=== PATIENT | female | born 1975 | race Caucasian/White ===

== ENCOUNTER 2024-12-26 16:55 | Emergency (ER) | payer BC, SELFPAY ==
--- OUTSIDE RECORDS SUMMARY | 2024-08-09 04:30 | XMS_ITS ---
Author Organization Donn Kebede MD Address [address] [address] Care Team Providers Care Head Operator Sulfide Name Role Phone Chris Miller Primary Care Provider U Donn Lackey [phone] REASON FOR VISIT Dysphagia and Esophagitis Encounters Encounter Location Date Provider Diagnosis Donn Kebede MD [address] [address] 08/09/2024 Donn Kebede Plan Of Treatment No Information Progress Notes * ALYCEJosiane TRUJILLOeDOB: [birth year] (49 yo F)Acc No.[id number]:08/09/2024 Patient: Emily JIANG Provider: Eleazar Kebede MD :1975 A ge:48 Y S ex:Female Date:08/09/2024 Address[facility] [place] [id number] Pcp:Chris Ahn Subjective: * Chief Complaints: * 1 . Dysphagia and Esophagitis. * HPI: H istory: Patient presents today for The patient denies heartburn, dysphagia, esophageal reflux, nausea, vomiting, abdominal pain, melena, hematochezia, changes in bowel habits or weight changes. * ROS: : Constitutional N o weight changes, fever or chills. N eurological N o history of cerebrovascular accident, transient ischemic attacks or seizure. C ardiovascular N o hypertension, No heart attack, No shortness of breath. P ulmonary N o hemoptysis, bronchitis or asthma, No pneumonia. G astrointestinal N o hematochezia, melena or hematemesis. G enitourinary N o pain, urgency or hematuria. E ndocrine N o diabetes or thyroid disease. M usculosketal N o arthritis or joint pain. H ematological N o bleeding disorders or easy bruising. I ntegumentary N o skin diseases, itching or changes in nail color. P sychiatric N o anxiety, halucinations or psychiatric conditions. * Medical History: Objective: * Vitals: * Examination: G eneral Examination: General appearance: r eveals a well-developed, well-nourished, and in no acute distress. S kin: w arm, moist. H EENT: w ithin normal limits.?Neck: s upple without jugular venous distenion. L ungs: c lear to auscultation. H eart: n o murmurs. A bdomen: s oft with no tenderness. Bowel sounds were active. E xtremities: w ithout cyanosis, clubbing or edema. * Physical Examination: : Appearance R eveals a well-developed, well-nourished pleasant patient, in no acute distress. H EENT w ithin normal limits. N negar s upple without jugular venous distention. H eart r egular without murmurs. L ungs c lear to ausculation. A bdomen S oft, with no tenderness, Bowel sounds were active. E xtremities w ithout cyanosis, clubbing, edema. H EENT: Head: W ithin normal limits. N negar:: Palpation: s upple, without jugular distentions. H eart:: Rhythm: r egular. L ungs: Auscultation: c lear. A bdomen: Palpation S oft, with no tenderness. Bowel sounds were active.. E xtremities: Inspection: W ithout cyanosis, clubbing, or edema.. Assessment: Plan: * Treatment: * Images: * Electronic signature of Perry Kebede MD on 12/26/2024 at 04:05 PM PDT Sign off status: Pending * Provider: Eleazar Kebede MD Date: 08/09/2024 Generated for Krystina rey/Stacy/eTfederico on: 12/26/2024 04:05 PM PDT History and Physical Notes * HPI (History of Present Illness) Category Sub-Category Detail Notes Category Not es History Patient presents today for The patient denies heartburn, dysphagia, esophageal reflux, nausea, vomiting, abdominal pain, melena, hematochezia, changes in bowel habits or weight changes. Physical Examination Category Sub-Category Detail Notes Section Note s HEENT Ear drums: Head: Within normal limits Sclera: Pupils: EOM: Oral cavity: Neck: Palpation: supple, without jugular dist entions Thyroid: Cervical lymph nodes: Carotid bruit: ROM: Extremities Edema: Cyanosis: Clubbing: Tremors: Varicose veins: Pulses: Inspection: Without cyanosis, cl ubbing, or edema. Lungs Shape and expansion: Percussion: Breath sounds: Rales: Wheezes: Breasts: Axillary nodes: Auscultation: clear Heart: PMI: Rhythm: regular Murmurs: Heart sounds: Auscultaton Abdomen Shape: Scars: Guarding: Tenderness: Masses: Liver: Hernia: Rectal: Inguinal nodes: Palpation Soft, with no tender ness. Bowel sounds were active. HEENT within normal limits Neck supple without jugul ar venous distention Heart regular without murm urs Lungs clear to ausculation Abdomen Soft, with no tender ness, Bowel sounds were active Extremities without cyanosis, cl ubbing, edema Appearance Reveals a well-devel oped, well-nourished pleasant patient, in no acute distress Heart regular without murmurs Examination Category Sub-Category Detail Notes Category Not es General Examination HEENT: within normal limits Neck: supple without jugul ar venous distenion Heart: no murmurs Lungs: clear to auscultatio n Abdomen: soft with no tendern ess. Bowel sounds were active Extremities: without cyanosis, cl ubbing or edema General appearance: reveals a well-devel oped, well-nourished, and in no acute distress Skin: warm, moist
[2024-12-26 17:03] VITALS: BP 117/69; PULSE 90; RESP 18; TEMP 37; O2SAT 91; BMI 24.3
--- NOTE | 2024-12-26 17:12 | ED_ITS ---
HPI - General Adult General Chief complaint: Extremity Pain/Injury, Lower Stated complaint: Swelling L ankle Time Seen by Provider: 12/26/24 17:09 History of Present Illness HPI narrative: This is a very pleasant 49-year-old female with a history of hypothyroidism on Synthroid and history of TAHBSO (for fibroids and ovarian cysts) on supplemental estrogen hormones. She is generally healthy other than that. No history of DVT or PE. She is a nonsmoker. Beginning about 3 4 days ago she started developing atraumatic non painful swelling of her left ankle. It was visually on the left lateral ankle but is now also posterior and medial. No known trauma. No known injury. No redness. No bruising. No discoloration. No numbness in her foot. No swelling or pain more proximally in her leg. She does do a lot of traveling for her job in the travel around the country. They had a long drive from [facility] and then recently were in [place] and traveled from their here to [place]. Because of her long drives immobilization she is at risk for DVTs. She contacted her primary care provider, who is in [place] and he advised that she should come to the ER to get an ultrasound for DVT. Related Data Home Medications ?Medication ?Instructions ?Recorded ?Confirmed Hormone replacement therapy 12/26/24 progesterone micronized .ROUTE DAILY 12/26/24 thyroid (pork) PO DAILY 12/26/24 Allergies Allergy/AdvReac Type Severity Reaction Status Date / Time No Known Drug Allergies Allergy Verified 12/26/24 17:02 [facility] PFS Social History Smoking Status: Never smoker Do you use any of these nicotine containing products: None How often do you have a drink containing alcohol: monthly or less AUDIT-C Alcohol total score: 1 Non-prescribed substance use: denies use Exam Narrative: Exam Narrative: Constitutional: Appears well-developed and well-nourished. Alert. Conversant. Non toxic. HENT: Head: Atraumatic. Nose: Nose normal. Mouth/Throat: Oral mucosa is clear and moist. no trismus. Eyes: Conjunctivae normal. EOM normal. Pupils equal, round, and reactive to light. No scleral icterus. Neck: Normal range of motion. Neck supple. No tracheal deviation present. Cardiovascular: Normal rate, regular rhythm. No gallop. No friction rub. No murmur heard. Symmetric PT and DP artery pulses Pulmonary/Chest: Effort normal. No stridor. No respiratory distress. No wheezes. No rales. No rhonchi . No tenderness. Musculoskeletal: RUE: Normal range of motion. No tenderness. No deformity LUE: Normal range of motion. No tenderness. No deformity RLE: Normal range of motion. No edema. No tenderness. No deformity LLE: She does have nontender edema affecting her left ankle on the medial and lateral malleoli and a little bit posteriorly. No pitting. No redness. No bruising. No warmth. No tenderness or edema involving the calf or garcia or knee. Thigh is normal. Normal range of motion. No edema. No tenderness. No deformity Lymph: No ascending lymphangitis Neurological: Alert and oriented to person, place, and time. Normal strength. CN II-VII intact. No sensory deficit. GCS eye subscore is 4. GCS verbal subscore is 5. GCS motor subscore is 6. Normal coordination Skin: Skin is warm and dry. No rash noted. No pallor. Normal capillary refill. Psychiatric: Normal mood. Normal affect. Const: Vital Signs, click to edit/add: Vital Signs - 24 hr 12/26/24 17:03 12/26/24 18:19 Temperature 98.6 F Pulse Rate [Pulse Oximeter] 90 81 Respiratory Rate 18 16 Blood Pressure [Ri ght Upper Arm] 117/69 Pulse Oximetry 91 99 Oxygen Delivery Me thod Room Air Room Air Course Vital Signs Vital signs: Initial Vital Signs Temperature 98.6 F 12/26/24 17:03 Temperature Source Temporal Artery Scan 12/26/24 17:03 Pulse Rate 90 12/26/24 17:03 Respiratory Rate 18 12/26/24 17:03 Blood Pressure 117/69 12/26/24 17:03 Blood Pressure Mean 85 12/26/24 17:03 Blood Pressure Position Sitting 12/26/24 17:03 Pulse Oximetry 91 12/26/24 17:03 Oxygen Delivery Method Room Air 12/26/24 17:03 Vital Signs Temperature 98.6 F 12/26/24 17:03 Pulse Rate 90 12/26/24 17:03 Respiratory Rate 18 12/26/24 17:03 Blood Pressure 117/69 12/26/24 17:03 Pulse Oximetry 91 12/26/24 17:03 Oxygen Delivery Method Room Air 12/26/24 17:03 Temperature 98.6 F 12/26/24 17:03 Pulse Rate 81 12/26/24 18:19 Respiratory Rate 16 12/26/24 18:19 Blood Pressure 117/69 12/26/24 17:03 Pulse Oximetry 99 12/26/24 18:19 Oxygen Delivery Method Room Air 12/26/24 18:19 Medical Decision Making MDM Narrative Medical decision making narrative: Very pleasant 49-year-old female who is on control pills (normal replacement after TAHBSO) presenting to the ER today with atraumatic, nonpainful swelling involving her left lower extremity, specifically her left ankle. Her PCP wanted an ultrasound make sure there was no DVT. This was obtained and is negative. She is not having any symptoms of pulmonary embolism. She does have swelling involving her left ankle on both malleoli and a little bit posteriorly. There is no redness or warmth suggest a cellulitis or infection or septic joint. No history of trauma to raise concern for ankle fracture. She is not having any pain even to suggest ankle sprain. At this point I do not think she needs x-rays. Plan of care will be rest, elevation as needed, gentle compression with Bernardo wrap her ankle wrap. Monitor for the next couple of days. If symptoms worsen, return to the ER right away. Otherwise follow-up with PCP for recheck within 5-7 days. Imaging Data US venous LLE: Attestation: I have reviewed the pertinent imaging results. My impression: Preliminary verbal report from glass installer technician is that ultrasound is negative for DVT. Radiologist's impression: IMPRESSION: No sign of deep venous thrombosis in the left lower extremity. Discharge Plan Discharge Clinical Impression: Ankle swelling Patient Disposition: Home, Self-Care Condition: Stable Instructions: Swollen Joint (ED) Additional Instructions: Good news, your ultrasound looks good. There is no sign of any blood clots (called ?deep vein thrombosis?) in your leg. Please tries to rest her left leg is able for the next few days. Try to keep it elevated when possible to help reduce swelling. You can also try a Bernardo wrap or ankle wrap to help reduce the swelling. Please monitor your condition carefully. If you have worsening swelling or if you develop new symptoms such as pain, discoloration, redness or warmth of your ankle, fever, or if you have any concerns, please return to the ER or see your doctor right away. Prescriptions: No Action progesterone micronized .ROUTE DAILY thyroid (pork) [TRANSMISSION LINE ENGINEER Thyroid] PO DAILY Hormone replacement therapy Patient Comments: pellets Follow Up/Referrals: Provider,Not a Local [Primary Care Provider, Family Practice] Stand Alone Forms: [facility] Info Instructions
--- NOTE | 2024-12-26 17:13 | CRLHL7_ITS ---
For Patients: As a result of the Century Cures Act, medical imaging exams and procedure reports are released immediately into your electronic medical record. You may view this report before your referring provider. If you have questions, please contact your health care provider. INDICATION: left ankle swelling, recent travel. TECHNIQUE: Ultrasound venous duplex lower left extremity. Compression venous exam was performed using santiago-scale, color Doppler, and spectral Doppler analysis. COMPARISON: None. FINDINGS: Deep veins: Sonographic imaging demonstrates the left common femoral, deep femoral, superficial femoral, popliteal, posterior tibial and the contralateral right common femoral veins to be fully compressible with normal color Doppler blood flow. Superficial veins: Greater saphenous vein is fully compressible. IMPRESSION: No sign of deep venous thrombosis in the left lower extremity. Dictated by Pérez Bryant MD @ 12/26/2024 6:32:42 PM (Electronically Signed)
--- OUTSIDE RECORDS SUMMARY | 2024-12-26 18:05 | XMS_ITS | Patient Health Record ---
Author Organization Donn Kebede MD Address [address] [place] [address] Care Team Providers Care Furnace Builder Name Role Phone Chris Miller Primary Care Provider Donn Petty Unavailable [phone] Reason For Referral No Information Encounters Encounter Location Date Provider Diagnosis Donn Kebede MD [address] [place] [address] 08/09/2024 Donn Kebede Plan Of Treatment No Information Insurance Providers Payer Name Payer Address Payer Phone Subscriber Number Group Number Insured Name Patient Relationship to Insured Coverage Start Date Coverage End Date [place] [employer] [address] [place] [address] [id number] Emily Levi Self - patient is the insured
--- OUTSIDE RECORDS SUMMARY | 2024-12-26 18:05 | XMS_ITS | Encounter Summary ---
Author Organization [facility] Address [address] [place] [address] Care Team Providers Care Kitchen And Bath Designer Name Role Phone Marie Carrera APRN Primary Care Provider [phone] Reason for Referral * Radiology Services (Routine) - Closed Specialty Diagnoses / Procedures Referred By Tapan t Referred To Contact Diagnoses Abdominal pain of multiple sites Abdominal bloating with cramps Diarrhea, unspecified type Procedures XR ABDOMEN 1 VW Maria Isabel Grady APRN [address] [place] [address] Phone: tel: fax: Referral ID Status Reason Start Date Expiration Date Visits Re quested Visits Authorized [id number] Closed 08/13/2022 09/13/2023 1 1 ULATION DIRECTOR Encounter Details Date Type Department Care Team (Late st Contact Info) Description 08/13/2022 Ancillary Orders [facility] Imaging Services [address] [place] [phone] Maria Isabel Grady APRN [address] [place] [address] Abdominal pain of multiple sites; Abdominal bloating with cramps; Diarrhea, unspecified type Social History Tobacco Use Types Packs/Day Years Used Date Smoking Tobacco: Never Assessed Comments Unknown Sex and Gender Information Value Date Recorded Sex Assigned at Not on file Legal Sex Female 9:22 AM CIRCULATION DIRECTOR Gender Identity Not on file Sexual Orientation Not on file COVID-19 Exposure Response Date Recorded In the last 10 days, have yo u been in contact with someone who was confirmed or suspected to have Coronavirus/COVID-19? No / Unsure 08/13/2022 3:07 PM CIRCULATION DIRECTOR documented as of this encounter Plan of Treatment Not on file documented as of this encounter Results * XR ABDOMEN 1 VW (08/13/2022 3:26 PM CIRCULATION DIRECTOR) Anatomical Region Laterality Modality Abdomen Computed Radiogr aphy 08/13/2022 3:26 PM CIRCULATION DIRECTOR Impressions 08/13/2022 4:01 PM CIRCULATION DIRECTOR IMPRESSION: 1. Nonspecific bowel gas pattern. Narrative 08/13/2022 4:01 PM CIRCULATION DIRECTOR Single view abdomen 08/13/2022 COMPARISON: None. HISTORY: 46-year-old female with abdominal pain and bloating. FINDINGS: A single view was obtained of the abdomen. The visualized lung bases are clear. No free air is seen beneath the hemidiaphragms. The small bowel gas pattern is nonspecific. The volume of stool in the colon is within normal limits. The renal outlines and psoas shadows are preserved. Procedure Note Haile Sharma MD - 08/13/2022 Single view abdomen 08/13/2022 COMPARISON: None. HISTORY: 46-year-old female with abdominal pain and bloating. FINDINGS: A single view was obtained of the abdomen. The visualized lung bases are clear. No free air is seen beneath the hemidiaphragms. The small bowel gas pattern is nonspecific. The volume of stool in the colon is within normal limits. The renal outlines and psoas shadows are preserved. IMPRESSION: 1. Nonspecific bowel gas pattern. Maria Isabel Grady APRN DIAGNOSTIC IMAGING ORD ERABLES Final Result documented in this encounter Visit Diagnoses Diagnosis Abdominal pain of multiple sites Abdominal pain, other specified site Abdominal bloating with cramps Diarrhea, unspecified type Abdominal pain of multiple sites Abdominal pain, other specified site Abdominal bloating with cramps Diarrhea, unspecified type documented in this encounter Care Teams Kitchen And Bath Designer Relationship Specialty Start Date End Date Marie Carrera APRN [address] [facility] [place] [address] PCP - General Nurse Practitioner Family 07/17/22 documented as of this encounter
--- OUTSIDE RECORDS SUMMARY | 2024-12-26 18:05 | XMS_ITS | Encounter Summary ---
Author Organization [facility] Address [address] [place] [address] Care Team Providers Care Oil Burner Mechanic Name Role Phone Marie Carrera APRN Primary Care Provider Encounter Details Date Type Department Care Team (Late st Contact Info) Description 07/10/2022 Ancillary Orders [facility] Central Test Scheduling [address] [address] [place] [address] Marie Carrera APRN [address] [place] [id number] Visit for screening mammogram Social History Tobacco Use Types Packs/Day Years Used Date Smoking Tobacco: Never Assessed Comments Unknown Sex and Gender Information Value Date Recorded Sex Assigned at Not on file Legal Sex Female 9:22 AM CUSTOMER PROGRAM MANAGER Gender Identity Not on file Sexual Orientation Not on file documented as of this encounter Plan of Treatment Not on file documented as of this encounter Visit Diagnoses Diagnosis Visit for screening mammogram Other screening mammogram documented in this encounter Care Teams Oil Burner Mechanic Relationship Specialty Start Date End Date Marie Carrera APRN [address] [place] [id number] PCP - General Nurse Practitioner Family 07/17/22 documented as of this encounter
--- OUTSIDE RECORDS SUMMARY | 2024-12-26 18:05 | XMS_ITS | Clinical Summary ---
Author Organization [facility] Address [address] [place] [address] Phone Care Team Providers Care Commercial Management Accountant Name Role Phone Marie Carrera APRN Primary Care Provider Allergies Active Allergy Reactions Criticality Noted Date Comments Iodinated Contrast Media Anaphylaxis High 11/24/2023 Medications Miscellaneous Medical Supply Use as directed. 1 Each 4 Active Miscellaneous Medical Supply Use as directed 1 Each 4 Active naproxen (NAPROSYN) 500 mg tablet Take 1 Tablet (500 mg) by mouth 2 times daily with meals. 30 Tablet 4 Active traMADoL (Ultram) 50 mg tabletIndicatio ns:Patellar dislocation, initial encounter Take 1 Tablet (50 mg) by mouth every 6 hours as needed for Pain. Do not take if you have history of seizures. Don't operate machinery on medication. 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 Sprain of medial collateral ligament of right kn ee 11/26/2023 Social History Tobacco Use Types Packs/Day Years Used Date Smoking Tobacco: Never Comments No Sex and Gender Information Value Date Recorded Sex Assigned at Not on file Legal Sex Female 9:22 AM SHANK FAKER Gender Identity Not on file Sexual Orientation Not on file Last Filed Vital Signs Vital Sign Reading Time Taken Comments Blood Pressure 126/76 04/16/2024 10:56 AM CDT Pulse 89 04/16/2024 10:56 AM CDT Temperature 36.8 C (98.2 F) 04/16/2024 10:56 AM CDT Respiratory Rate - - Oxygen Saturation 99% 04/16/2024 10:56 AM CDT Inhaled Oxygen Concentration - - Weight 68.6 kg (151 lb 3.2 oz) 04/16/2024 10:56 AM CDT Height 170.2 cm (5' 7) 04/16/2024 10:56 AM CDT Body Mass Index 23.68 04/16/2024 10:56 AM CDT Plan of Treatment Health Maintenance Due Date Last Done Comments DTAP/TDAP/TD VACCINES (1 - Tdap) 10/24/1995 HEPATITIS B VACCINES (1 of 3 - 19+ 3-dose series) 08/1995 HPV/Cotest (21-29) 1997 CERVICAL CANCER SCREENING 2006 HPV/Cotest (30-65) 2006 PAP SMEAR 2006 BREAST CANCER SCREENING 2016 COLORECTAL SCREENING 2021 Colorectal Cancer Screening 2021 FIT-DNA Q 3 years 2021 FIT/FOBT Q 1 year 2021 Flex Sig/CT Colonography Q 5 years 2021 INFLUENZA VACCINE (#1) 2025 Insurance [employer] PPO EXCHANGE Care Teams Commercial Management Accountant Relationship Specialty Start Date End Date Marie Carrera APRN [address] [place] [address] PCP - General Nurse Practitioner Family 07/17/22
[2024-12-26 18:19] VITALS: PULSE 81; RESP 16; O2SAT 99
== END 2024-12-26 18:42 | disposition home or self-care (01) ==
PROVIDERS: Emergency Provider Emergency Medicine
DX: R22.42 Localized swelling, mass and lump, left lower limb (principal)
CPT/HCPCS: 93971; 99282; 99283